=== PATIENT | female | born 1970 | race African-American/Black ===

== ENCOUNTER 2016-07-25 18:35 | Emergency (ER) | payer OTHER, BC ==
[~2016-07-25 18:35] MED LIST: ALKA-SELTZER P1 EA13; AUGMENTIN 875-1 EAC2 PO; FLEXERIL10 MG PO; FLONASE16 G2 NS; MOTRIN600 MG PO; NO MEDS; NORCO 5/325 TAB1 TAB PO
== END 2016-07-25 20:19 ==
LOC: EDMED 18:35
DX: S60.221A Contusion of right hand, initial encounter (principal); Z87.891 Personal history of nicotine dependence; W22.8XXA Striking against or struck by other objects, initial encounter; Y92.69 Other specified industrial and construction area as the place of occurrence of the external cause; Y99.0 Civilian activity done for income or pay